=== PATIENT | female | born 1935 | race Caucasian/White ===

== ENCOUNTER 2016-10-13 16:32 | Observation (INO) | payer MEDICARE ==
[2016-10-13] MEDS ORDERED: NS 0.9% 1000 ML* 1,000 ML IV ONE (17:03)
[2016-10-13] MEDS ORDERED: Aspirin Low Dose CHEW TAB* 81 MG PO ONE (17:03)
--- NOTE | 2016-10-13 17:43 | RAD ---
HISTORY: Chest pain, syncope COMPARISONS: None VIEWS:1: Single frontal portable view of the chest at 5:30 PM FINDINGS: LINES AND TUBES: None. CARDIOMEDIASTINAL SILHOUETTE: The cardiomediastinal silhouette is normal for portable technique. PLEURA: The costophrenic angles are sharp. No pleural abnormalities are noted. LUNG PARENCHYMA: There is hyperinflation. ABDOMEN: The upper abdomen is clear. There is no subphrenic gas. BONES AND SOFT TISSUES: Degenerative changes are noted IMPRESSION: HYPERINFLATION. NO ACTIVE CARDIOPULMONARY DISEASE.
[2016-10-13 18:20] LABS: Hematocrit 45 % (35-47); Mean Corpuscular HGB Conc 33 g/dl (31-36); Mean Corpuscular Hemoglobin 28 pg (27-31); Mean Corpuscular Volume 84 fL (80-97); Mean Platelet Volume 9 um3 (7.4-10.4); Red Blood Count 5.39 10^6/ul (4.0-5.4); Red Cell Distribution Width 13 % (10.5-15); White Blood Count 7.5 10^3/ul (3.5-10.8)
[2016-10-13 18:34] LABS: Albumin 4.2 g/dL (3.2-5.2); BUN/Creatinine Ratio 13.3 (8-20); Calcium 9.8 mg/dL (8.6-10.3); EGFR African American 70.4 (>60); EGFR Non-African American 54.7 (>60); Globulin 2.1 g/dL (2-4); Magnesium 1.9 mg/dL (1.9-2.7); Potassium 4.3 mmol/L (3.5-5.0); Total Bilirubin 0.6 mg/dL (0.2-1.0); Total Protein 6.3 g/dL (6.4-8.9)
[2016-10-13 18:40] LABS: Troponin I 0.41 ng/mL (<0.04)
[2016-10-13 19:00] LABS: TSH (Thyroid Stimulating Horm) 1.92 mcIU/mL (0.34-5.60)
[2016-10-13] MEDS ORDERED: Enoxaparin(*) 80 MG/0.8 ML SYR SUBCUT ONE (19:16)
[2016-10-13] MEDS ORDERED: Atorvastatin* 80 MG TAB PO ONE (19:51)
[2016-10-13] MEDS ORDERED: Metoprolol Tartrate TAB* 25 MG PO SCH (19:52)
[2016-10-13 22:26] LABS: Troponin I 0.29 ng/mL (<0.04)
--- NOTE | 2016-10-13 22:59 | ED ---
Shamika Dutton Edward, scribed for Feli Martinez MD on 10/13/16 at 1705 . Complex/Multi-Sys Presentation - HPI Summary HPI Summary: 81 y/o female presents to ED c/o lightheadedness and near syncope today during lunch while the patient stood up. A physician at the retreat where this happened checked her pulse and noted it to be rapid and advised her to come to the ED. Pt also c/o CP 2 nights ago at the mid sternal region, rated 8/10 in severity at the time. The CP resolved spontaneously 20 minutes later. Pt also c/ o chronic fatigue and weakness for the past two months. Associated sx: palpitations described as heart racing, chronic bilateral feet turning purple when they hang. Pt has been at [facility] she [facility] been at for the previous 10 nights. Pt lives in [place], [place] and recently came to [place] 10 days ago. - History Of Current Complaint Chief Complaint: EDWeakness Time Seen by Provider: 10/13/16 17:03 Hx Obtained From: Patient Onset/Duration: Sudden Onset, Lasting Hours, Still Present Timing: Intermittent, Lasting:, Seconds Severity Currently: None Severity Initially: Severe Location: Pain At: - Mid-sternal chest Character: Dull Aggravating Factor(s): None Alleviating Factor(s): None Associated Signs And Symptoms: Positive: Weakness, Syncope - Near, Chest Pain, Palpitations, Other - Fatigue, lightheadeness, near syncope, chronic feet turning purple when they hang - Allergies/Home Medications Allergies/Adverse Reactions: Allergies Allergy/AdvReac Type Severity Reaction Status Date / Time No Known Allergies Allergy Verified 10/13/16 16:36 Home Medications: Home Medications Levothyroxine TAB* [Synthroid 75 MCG TAB*] 75 mcg PO DAILY 10/14/16 [History Confirmed 10/14/16] buPROPion TAB* [Wellbutrin TAB*] 300 mg PO DAILY 10/14/16 [History Confirmed ] PMH/Surg Hx/FS Hx/Imm Hx Previously Healthy: No Endocrine/Hematology History: Reports: Other Endocrine/Hematological Disorders - HLD, hypothyroidism Cardiovascular History: Reports: Other Cardiovascular Problems/Disorders - Hx low BP Psychiatric History: Reports: Hx Anxiety, Hx Depression - Surgical History Surgery Procedure, Year, and Place: Hysterectomy 30 years ago Infectious Disease History: Denies: Traveled Outside the [place] in Last 30 Days - Family History Known Family History: Positive: Other - [place] - mother's side. Father's side - lived into their 90's - Social History Occupation: Retired Lives: Alone Alcohol Use: None Hx Substance Use: No Substance Use Type: Reports: None Hx Tobacco Use: No Smoking Status (MU): Never Smoked Tobacco Review of Systems Positive: Fatigue Eyes: Negative ENT: Negative Positive: Palpitations, Chest Pain - 2 d ago Respiratory: Negative Gastrointestinal: Negative Genitourinary: Negative Musculoskeletal: Negative Skin: Negative Neurological: Other - Lightheadedness Positive: Weakness, Syncope - Near syncope Psychological: Normal All Other Systems Reviewed And Are Negative: Yes Physical Exam Triage Information Reviewed: Yes Vital Signs On Initial Exam: Initial Vitals Temp Pulse Resp BP Pulse Ox 97.8 F 102 20 102/86 100 10/13/16 16:36 10/13/16 16:36 10/13/16 16:36 10/13/16 16:36 10/13/16 16:36 Vital Signs Reviewed: Yes Appearance: Positive: No Pain Distress, Well-Nourished, Ill-Appearing Skin: Positive: Warm, Skin Color Reflects Adequate Perfusion Head/Face: Positive: Normal Head/Face Inspection Eyes: Positive: Conjunctiva Clear ENT: Positive: Normal ENT inspection Neck: Positive: Supple Respiratory/Lung Sounds: Positive: Clear to Auscultation, Breath Sounds Present Cardiovascular: Positive: RRR, Pulses are Symmetrical in both Upper and Lower Extremities, Other - Brisk capillary refill Abdomen Description: Positive: Nontender, Soft Bowel Sounds: Positive: Present Musculoskeletal: Positive: Strength/ROM Intact Neurological: Positive: Sensory/Motor Intact, Alert, Oriented to Person Place, Time, Facial Symmetry, Speech Normal Psychiatric: Positive: Normal Diagnostics - Vital Signs Vital Signs Temp Pulse Resp BP Pulse Ox 10/13/16 16:36 97.8 F 102 20 102/86 100 - Laboratory Lab Results: Lab Results 10/13/16 10/13/16 10/13/16 Range/Units 18:03 18:03 18:03 WBC 7.5 (3.5-10.8) 10^3/ul RBC 5.39 (4.0-5.4) 10^6/ul Hgb 15.0 (12.0-16.0) g/dl Hct 45 (35-47) % MCV 84 (80-97) fL MCH 28 (27-31) pg MCHC 33 (31-36) g/dl RDW 13 (10.5-15) % Plt Count 223 (150-450) 10^3/ul MPV 9 (7.4-10.4) um3 Neut % (Auto) 67.4 (38-83) % Lymph % (Auto) 24.7 L (25-47) % [place] % (Auto) 6.7 (1-9) % Eos % (Auto) 0.7 (0-6) % Baso % (Auto) 0.5 (0-2) % Absolute Neuts (auto) 5.0 (1.5-7.7) 10^3/ul Absolute Lymphs (auto) 1.8 (1.0-4.8) 10^3/ul Absolute Monos (auto) 0.5 (0-0.8) 10^3/ul Absolute Eos (auto) 0.1 (0-0.6) 10^3/ul Absolute Basos (auto) 0 (0-0.2) 10^3/ul Absolute Nucleated RBC 0.01 10^3/ul Nucleated RBC % 0.2 INR (Anticoag Therapy) 0.93 (0.89-1.11) APTT 30.7 (26.0-36.3) seconds D-Dimer, Quantitative < 200 (Less Than 230) ng/mL Sodium 135 (133-145) mmol/L Potassium 4.3 (3.5-5.0) mmol/L Chloride 101 (101-111) mmol/L Carbon Dioxide 23 (22-32) mmol/L Anion Gap 11 (2-11) mmol/L BUN 13 (6-24) mg/dL Creatinine 0.98 H (0.51-0.95) mg/dL Est GFR ( Amer) 70.4 (>60) Est GFR (Non-Af Amer) 54.7 (>60) BUN/Creatinine Ratio 13.3 (8-20) Glucose 76 (70-100) mg/dL Lactic Acid (0.5-2.0) mmol/L Calcium 9.8 (8.6-10.3) mg/dL Magnesium 1.9 (1.9-2.7) mg/dL Total Bilirubin 0.60 (0.2-1.0) mg/dL AST 23 (13-39) U/L ALT 11 (7-52) U/L Alkaline Phosphatase 56 (34-104) U/L Total Creatine Kinase 100 (10-223) U/L CK-MB (CK-2) 7.8 H (0.6-6.3) ng/mL Troponin I 0.41 H* (<0.04) ng/mL B-Natriuretic Peptide ( - 100) pg/mL Total Protein 6.3 L (6.4-8.9) g/dL Albumin 4.2 (3.2-5.2) g/dL Globulin 2.1 (2-4) g/dL Albumin/Globulin Ratio 2.0 (1-3) TSH 1.92 (0.34-5.60) mcIU/mL 10/13/16 10/13/16 Range/Units 18:03 18:03 WBC (3.5-10.8) 10^3/ul RBC (4.0-5.4) 10^6/ul Hgb (12.0-16.0) g/dl Hct (35-47) % MCV (80-97) fL MCH (27-31) pg MCHC (31-36) g/dl RDW (10.5-15) % Plt Count (150-450) 10^3/ul MPV (7.4-10.4) um3 Neut % (Auto) (38-83) % Lymph % (Auto) (25-47) % [place] % (Auto) (1-9) % Eos % (Auto) (0-6) % Baso % (Auto) (0-2) % Absolute Neuts (auto) (1.5-7.7) 10^3/ul Absolute Lymphs (auto) (1.0-4.8) 10^3/ul Absolute Monos (auto) (0-0.8) 10^3/ul Absolute Eos (auto) (0-0.6) 10^3/ul Absolute Basos (auto) (0-0.2) 10^3/ul Absolute Nucleated RBC 10^3/ul Nucleated RBC % INR (Anticoag Therapy) (0.89-1.11) APTT (26.0-36.3) seconds D-Dimer, Quantitative (Less Than 230) ng/mL Sodium (133-145) mmol/L Potassium (3.5-5.0) mmol/L Chloride (101-111) mmol/L Carbon Dioxide (22-32) mmol/L Anion Gap (2-11) mmol/L BUN (6-24) mg/dL Creatinine (0.51-0.95) mg/dL Est GFR ( Amer) (>60) Est GFR (Non-Af Amer) (>60) BUN/Creatinine Ratio (8-20) Glucose (70-100) mg/dL Lactic Acid 0.9 (0.5-2.0) mmol/L Calcium (8.6-10.3) mg/dL Magnesium (1.9-2.7) mg/dL Total Bilirubin (0.2-1.0) mg/dL AST (13-39) U/L ALT (7-52) U/L Alkaline Phosphatase (34-104) U/L Total Creatine Kinase (10-223) U/L CK-MB (CK-2) (0.6-6.3) ng/mL Troponin I (<0.04) ng/mL B-Natriuretic Peptide 92 ( - 100) pg/mL Total Protein (6.4-8.9) g/dL Albumin (3.2-5.2) g/dL Globulin (2-4) g/dL Albumin/Globulin Ratio (1-3) TSH (0.34-5.60) mcIU/mL Result Diagrams: 10/14/16 04:33 10/14/16 08:52 Lab Statement: Any lab studies that have been ordered have been reviewed, and results considered in the medical decision making process. - Radiology CXR Xray Interpretation: No Acute Changes - HYPERINFLATION. NO ACTIVE CARDIOPULMONARY DISEASE. ED PHYSICIAN AGREEABLE Radiology Interpretation Completed By: Radiologist - Additional Comments Diagnostic Additional Comments: EKG @ 16:52 - SR @ 97 bpm. 1st degree AV block. Normal IV, QTc, normal axis. Small Q wave in III. Poor R wave progression in V1 and V2. NSTW changes. No previous EKG for comparison Re-Evaluation - Re-Evaluation 1 Re-Evaluation Time: 19:19 Comment: Discuss plan for admission Complex Multi-Symp Course/Dx Assessment/Plan: 81 y/o female presents to ED c/o lightheadedness and near syncope today during lunch while the patient stood up. Pt also c/o CP 2 nights ago at the mid sternal region, rated 8/10 in severity at the time. The CP resolved spontaneously 20 minutes later. Pt also c/o chronic fatigue and weakness for the past two months. Associated sx: palpitations described as heart racing, chronic bilateral feet turning purple when they hang. Pt has been at [facility] where she had been at for the previous 10 nights. Pt lives in [place], [place] and recently came to [place] 10 days ago. CXR SHOWS HYPERINFLATION. NO ACTIVE CARDIOPULMONARY DISEASE. Discussed with Nagi Hall @ 19:11 who recommended we consult Cardiology. Discussed case with Dr. Bonilla Brady @ 19:15 who recommended admission and instructed we give Lovenox 1 mg/kg. EKG @ 16:52 - SR @ 97 bpm. 1st degree AV block. Normal IV, QTc, normal axis. Small Q wave in III. Poor R wave progression in V1 and V2. NSTW changes. No previous EKG for comparison. Discussed case with Dr. Jackson who accepted the pt for admission @ 19:17. - Diagnoses Provider Diagnoses: Near syncope, Elevated troponin, Chest pain - Physician Notifications Discussed Care Of Patient With: Bonilla Brady Time Discussed With Above Provider: 19:15 Instructed by Provider To: Admit As Inpatient - and give Lovenox Discharge - Discharge Plan Condition: Improved Disposition: ADMITTED TO [facility] The documentation as recorded by the Shamika andrews Edward accurately reflects the service I personally performed and the decisions made by , Feli Martinez MD.
[2016-10-14 02:37] LABS: Troponin I 0.17 ng/mL (<0.04)
[2016-10-14 05:06] LABS: Hematocrit 40 % (35-47); Hemoglobin 13.4 g/dl (12.0-16.0); Mean Corpuscular HGB Conc 33 g/dl (31-36); Mean Corpuscular Hemoglobin 28 pg (27-31); Mean Corpuscular Volume 84 fL (80-97); Mean Platelet Volume 10 um3 (7.4-10.4); Red Cell Distribution Width 13 % (10.5-15); White Blood Count 5.8 10^3/ul (3.5-10.8)
[2016-10-14 05:15] LABS: BUN/Creatinine Ratio 13.6 (8-20); Blood Urea Nitrogen 14 mg/dL (6-24); CO2 Carbon Dioxide 23 mmol/L (22-32); Calcium 8.9 mg/dL (8.6-10.3); Chloride 106 mmol/L (101-111); Cholesterol 164 mg/dL; EGFR African American 66.5 (>60); EGFR Non-African American 51.7 (>60); Glucose 95 mg/dL (70-100); HDL Cholesterol 34.8 mg/dL; Sodium 137 mmol/L (133-145); Triglycerides 551 mg/dL
[2016-10-14 05:34] LABS: Anion Gap 8 mmol/L (2-11)
[2016-10-14] MEDS ORDERED: Levothyroxine TAB* 75 MCG TAB PO SCH (06:00)
--- NOTE | 2016-10-14 07:02 | HP ---
CC: Dr. Brady * HISTORY AND PHYSICAL: DATE OF ADMISSION: 10/13/16 PRIMARY CARE PROVIDER: None. ATTENDING PHYSICIAN WHILE IN THE HOSPITAL: Juancarlos Jackson MD * (report dictated by Nagi Hall NP) CHIEF COMPLAINT: 1. Chest pain. 2. Near syncope. HISTORY OF PRESENT ILLNESS: Mrs. Mondragon is a 81-year-old female patient. She has a history of hyperlipidemia, hypothyroidism, anxiety, depression, and osteoporosis. She comes into the ER today stating that she recently comes to the [facility] from [place] for a wellness retreat. She was at that retreat 2 days ago and developed some substernal chest pain while she says she was laying in bed, lasted about 20 minutes and then shortly got better. She does state that since then she has been pretty fatigued, pretty weak, she gets pretty short of breath with minimal exertion; but no chest discomfort or any more pain per the patient. She does state that leading up to this she has been having a significant amount of weakness, fatigue, fatiguing easily, getting pretty winded , and just not having the same exercise capacity that she had prior in prior months. She was at the retreat today. She was going to get up from eating when she had an episode where she almost fainted, she was near syncopal. There was a medical provider there who checked her pulse and it was noted to be 125 so they referred her to the hospital. There has been no reports of calf pain, no short of breath, no pain on inspiration, no fevers or chills, no congestion, no nausea, vomiting, or diarrhea. She again was concerned because the chest pressure came in, and was evaluated and it was noted that she had a troponin of 0.41 and because of this the hospitalist service was asked to evaluate for admission. PAST MEDICAL HISTORY: Significant for: 1. Hyperlipidemia. 2. Hypothyroidism. 3. Anxiety. 4. Depression. 5. Osteoporosis. PAST SURGICAL HISTORY: 1. She has had a hysterectomy. 2. Knee surgery. HOME MEDICATIONS: According to her recall, she is trying to get a list which include: 1. Repatha 140 mg every 2 weeks subcu. 2. Wellbutrin 300 mg a day. 3. Synthroid 75 mcg daily. 4. Prolia 1 injection yearly. 5. Xanax 1 tablet as needed daily for anxiety. ALLERGIES TO MEDICATIONS: No known drug allergies. FAMILY HISTORY: Mother had a history of cancer, father in his 90s of old age according to the patient. SOCIAL HISTORY: She does not smoke. She drinks wine occasionally. Surrogate decision makers are her sons. REVIEW OF SYSTEMS: There is no documented fever. She denied having any significant weight change. There was no double vision. She denies having any ear discharge. She denies having any rhinorrhea, no sore throat, no thyroid enlargement. There is chest pain per my HPI. There was a near syncopal episode. There is no shortness of breath. There is no dyspnea on exertion. There is no orthopnea or nocturnal dyspnea. There is no abdominal pain. There was no nausea, no vomiting. There is no dysuria. No frequency, no seizure. Again there was near syncope; but no loss of consciousness, no pruritus, and no skin ulcerations. Review of 14 systems completed and all others negative. PHYSICAL EXAMINATION GENERAL: At this time Mrs. Mondragon is a 81-year-old female patient. She is sitting in the ER stretcher. She does not appear to be in any acute distress. VITAL SIGNS: Reveals blood pressure 116/71, pulse of 92, respirations 18, O2 sat 100%, and temperature 99.0. HEENT: Head is atraumatic and normocephalic. Eyes; EOMs are intact. Sclerae anicteric and not pale. NECK: Supple. Throat; oral mucosa appears to be moist, no oropharyngeal erythema. LUNGS: Clear to auscultation bilaterally. No wheezes, rales, or rhonchi. HEART: Sounds S1 and S2. Regular, rate, and rhythm. No murmurs, rubs, or gallops. ABDOMEN: Soft, it was flat and nontender. Bowel sounds present. EXTREMITIES: Pulses 2+ throughout. Able to move all 4 extremities with 5/5 strength. NEUROLOGIC: The patient is awake, is alert. She is oriented x3. Tongue midline, billing coordinator are equal, no gross focal deficits. SKIN: Grossly intact. LABORATORY DATA: Reveal WBC of 7.5, RBC of 5.39, hemoglobin 15.0, hematocrit of 45, platelet count 223. The INR was 0.93. PTT of 30.9. D-dimer less than 200. Sodium 135, potassium of 4.3, chloride of 101, her bicarb was 23, BUN 13, creatinine 0.98, glucose 76, lactic 0.9, calcium 9.8, mag 1.9. Total bili was 0.6, AST 23, ALT 11, alk phos 56, troponin was 0.41, BMP of 92. Albumin 4.2, TSH normal at 1.92. There was a chest x-ray obtained today which revealed hyperinflation, no active cardiopulmonary disease. There was an EKG as well that showed a normal sinus rhythm, rate of 97. No ST- elevations or T-wave inversions were noted. Old medical records were not available. ASSESSMENT AND PLAN: Mrs. Mondragon is a 81-year-old female patient. She presented today with complaints of chest pain 2 days ago, now easily fatigued and dyspnea on exertion. She has been having easy fatigue for the last month off and on. It was now noted that her troponin was mildly elevated. She will be admitted under inpatient status for: 1. Chest pain with elevated troponin, concern for N-STEMI. Again it is hard to say, her symptoms are atypical. She did have this tachycardia as well. This could just be demand ischemia from an arrhythmia that we just have not seen yet. I did touch base with Dr. Brady, he felt at this point to hold off on the beta-malika. Obviously if her troponins come up or if she becomes symptomatic I would give that to her. I am going to give her Lovenox, aspirin, and start a statin. He wants to hold the beta-malika to see if there are any arrhythmias possibly. The plan is also to stress her tomorrow and we do not want her to have a beta-malika on board if we are going to do stressing. So I did order a stress test tomorrow per his recommendations. Obviously, if the troponins go up then I am going to cancel that stress test. She will be n.p.o. after midnight. We will trend these troponins. She is asymptomatic currently and we will continue to follow her closely. 2. Hyperlipidemia. I did add a statin therapy and I will check lipid panel. 3. Hypothyroidism. Continue Synthroid. 4. Anxiety and depression. Continue her meds as prescribed. 5. Osteoporosis. Follow with the primary. 6. DVT prophylaxis. She is getting full-dose Lovenox. 7. Code status. Full code. 8. Fluids, electrolytes, and nutrition. She can have a healthy diet. TIME SPENT: On the admission approximately 60 minutes, greater than half the time spent [id number] with the patient obtaining my history and physical. The other half the time spent going over the plan of care with the patient and then implementing my plan of care. I discussed the plan of care with my attending Dr. Jackson who is in agreement. NAGI HALL NP [id number]/CPS #: [id number] JUVENTINO
[2016-10-14] MEDS ORDERED: Enoxaparin(*) 60 MG/0.6 ML SYR SUBCUT SCH (08:00)
[2016-10-14] MEDS ORDERED: BuPROPion XL* 300 MG TAB.XL PO SCH (09:00)
[2016-10-14] MEDS ORDERED: Aspirin Low Dose CHEW TAB* 81 MG PO SCH (09:00)
--- NOTE | 2016-10-14 10:53 | ECHO ---
Patient: GODWIN REYES [facility] Rec#: [id number] : 1935 Date: 10/14/2016 Age: 81y Height: 167.64 cm / 66.0 in Weight: 58.97 kg / 130.0 lbs Sex: F BSA: 1.67 Room#: 447 Admit Date#: 10/13/2016 Type: Inpatient Referring: Nagi Hall NP Reading: Toan Nieto MD Manager Medical Affairs: Isha Carrizales [facility] Transthoracic Echocardiogram Indication: CP/NSTEMI BP: 148/52 HR: 77 Rhythm: NSR Findings History: HLD,hypothyroid,anxiety-depression,s/p bilateral breast implants. Technical Comments: The study quality is good. Completed at 0836. Left Ventricle: The left ventricular chamber size is decreased. Septal wall hypertrophy is observed. Global left ventricular wall motion and contractility are within normal limits. There is normal left ventricular systolic function. The estimated ejection fraction is 55-60%. Abnormal left ventricular diastolic function is observed. Left Atrium: The left atrial chamber size is normal. Right Ventricle: The right ventricular cavity size is normal. The right ventricular global systolic function is normal. Right Atrium: The right atrial cavity size is normal. Aortic Valve: The aortic valve is trileaflet. The aortic valve leaflets are mildly thickened. There is no evidence of aortic regurgitation. There is no evidence of aortic stenosis. Mitral Valve: The mitral valve leaflets appear normal. There is mild mitral regurgitation. The mitral regurgitant jet is centrally directed. There is no evidence of mitral stenosis. Tricuspid Valve: The tricuspid valve leaflets are normal. There is mild to moderate tricuspid regurgitation. The tricuspid regurgitant jet is centrally directed. No pulmonary hypertension is noted. There is no tricuspid stenosis. Pulmonic Valve: The pulmonic valve appears normal. There is no evidence of pulmonic regurgitation. There is no pulmonic stenosis. Pericardium: The pericardium appears normal. Aorta: The ascending aorta is not well visualized. There is no dilatation of the aortic arch. There is no dilation of the aortic root. Pulmonary Artery: The main pulmonary artery appears normal. Venous: The inferior vena cava appears normal in size. There is a greater than 50% respiratory change in the inferior vena cava dimension. Conclusions Global left ventricular wall motion and contractility are within normal limits. There is normal left ventricular systolic function. The estimated ejection fraction is 55-60%. There is no evidence of aortic stenosis. There is mild mitral regurgitation. There is mild to moderate tricuspid regurgitation. No pulmonary hypertension is noted. The pericardium appears normal. Measurements Name Value Normal Range RVIDd (AP) 2D 2.7 cm (0.9 - 2.6) RVDdMajor (2D) 2.9 cm (2.2 - 4.4) RAd ISD 4CH 4.4 cm (3.4 - 4.9) RA (A4C)W 3.3 cm (2.9 - 4.6) IVSd (2D) 1.3 cm (0.6 - 1) LVPWd (2D) 0.9 cm (0.6 - 1) LVIDd (2D) 2.9 cm (3.6 - 5.4) LVIDs (2D) 2.1 cm - LV FS (2D) 27 % (25 - 45) Aortic Annulus 1.3 cm (1.4 - 2.6) Ao root diameter (2D) 3 cm (2.1 - 3.5) Aortic arch 2.3 cm (1.8 - 3.4) Descending Ao 0.3 cm - LA dimension (AP) 2D 3.1 cm (2.3 - 3.8) LAd ISD 4CH 4.9 cm (2.9 - 5.3) LA ISD 4CH W 3.4 cm (2.5 - 4.5) Name Value Normal Range LA ESV SP 4CH (A/L) 41 ml - LA ESV SP 2CH (A/L) 42 ml - LA ESV BP (A/L) 45 ml - LA ESV BP (A/L) index 27.02 ml/m2 - LA ESV SP 4CH (MOD) 38 ml - LA ESV SP 2CH (MOD) 38 ml - Name Value Normal Range MV E-wave Vmax 0.7 m/sec - MV deceleration time 208 msec - MV A-wave Vmax 1.1 m/sec - MV E:A ratio 0.61 ratio - LV septal e' Vmax 0.08 m/sec - LV lateral e' Vmax 0.08 m/sec - LV E:e' septal ratio 7.5 ratio - LV E:e' lateral ratio 7.5 ratio - Name Value Normal Range AV Vmax 2 m/sec - AV VTI 43.9 cm - AV peak gradient 16.33 mmHg - AV mean gradient 8.94 mmHg - LVOT Vmax 1.7 m/sec - LVOT VTI 37 cm - LVOT peak gradient 11.54 mmHg - LVOT mean gradient 6.76 mmHg - Name Value Normal Range TR Vmax 2.5 m/sec - TR peak gradient 24 mmHg - RAP 3 mmHg - RVSP 27 mmHg - IVC diameter 2 cm - Name Value Normal Range PV Vmax 0.8 m/sec - PV peak gradient 2.45 mmHg -
[2016-10-14] MEDS ORDERED: Regadenoson* 0.4 MG/5 ML SYRINGE ONE (11:03)
--- NOTE | 2016-10-14 14:28 | RAD ---
Edited for charges. INDICATION: Chest pain. COMPARISON: There are no prior studies available for comparison. Technique: A single day myocardial perfusion stress study was performed. Initially the resting study was performed. The patient was given an intravenous injection of 10.3 mCi of technetium 99m tetrofosmin and and the heart was imaged in multiple projections. The patient returned later in the day and under the direction of Dr. Szymanski, the patient was given intervenous injection of Lexiscan. Subsequently the patient was given intravenous injection of 25.4 mCi of technetium 99m tetrofosmin and the heart was imaged in multiple projections. Images were reconstructed in the axial, sagittal and coronal planes and in a 3- D format. FINDINGS: There appears to be normal wall motion and myocardial thickening. The left ventricular ejection fraction was calculated to be 88%. Review of the images demonstrates no evidence for infarct or ischemia. IMPRESSION: NO EVIDENCE FOR INFARCT OR ISCHEMIA. ASSESSMENT: Low risk. Based on imaging criteria from ACC/AHA 2002 Guideline Update for the Management of Patients With Chronic Stable Angina Table 23. Noninvasive Risk Stratification. MTDD
[2016-10-14] MEDS ORDERED: Metoprolol Succinate XL TAB* 25 MG PO SCH (16:00)
[2016-10-14] MEDS ORDERED: NS 0.9% 500 ML BAG* 500 ML IV ONE (16:02)
--- NOTE | 2016-10-14 16:33 | DCNOTE ---
Subjective Date of Service: 10/14/16 Interval History: No chest pains or palpitations since admission. No new c/o. Anxious to go home. Objective Active Medications: Aspirin (Aspirin Low Dose Tab*) 81 mg PO DAILY [facility] Last Admin: 10/14/16 08:59 Dose: 81 mg Bupropion HCl (Bupropion Xl*) 300 mg PO DAILY [facility] PRN Reason: Protocol Last Admin: 10/14/16 08:59 Dose: 300 mg Enoxaparin Sodium (Lovenox(*)) 60 mg SUBCUT Q12H [facility] Last Admin: 10/14/16 09:00 Dose: 60 mg Sodium Chloride (Ns 0.9% 500 Ml Bag*) 500 mls @ 1,000 mls/hr IV ONCE ONE Stop: 10/14/16 16:31 Last Admin: 10/14/16 16:20 Dose: 1,000 mls/hr Levothyroxine Sodium (Synthroid Tab*) 75 mcg PO DAILY@0600 [facility] Last Admin: 10/14/16 05:37 Dose: 75 mcg Metoprolol Succinate (Toprol Xl Tab*) 25 mg PO DAILY [facility] Last Admin: 10/14/16 16:20 Dose: 25 mg Vital Signs 10/13/16 10/13/16 10/13/16 19:50 20:53 21:30 Temperature 98.1 F 98.1 F Pulse Rate 92 92 92 Respiratory 18 16 16 Rate Blood Pressure 116/71 142/55 142/55 (mmHg) O2 Sat by Pulse 100 100 100 Oximetry 10/14/16 10/14/16 10/14/16 00:36 04:12 07:45 Temperature 97.5 F 97.8 F 97.8 F Pulse Rate 69 73 79 Respiratory 16 16 18 Rate Blood Pressure 121/54 148/52 116/54 (mmHg) O2 Sat by Pulse 100 100 98 Oximetry 10/14/16 10/14/16 10/14/16 08:00 09:26 11:21 Temperature 97.7 F Pulse Rate 66 Respiratory 16 18 Rate Blood Pressure 138/68 (mmHg) O2 Sat by Pulse 98 100 Oximetry Oxygen Devices in Use Now: None Appearance: Alert, partly up in bed. In good spirits. Looks comfortable. Ears/Nose/Mouth/Throat: Clear Oropharnyx, Mucous Membranes Moist Neck: NL Appearance and Movements; NL JVP, No Thyroid Enlargement, Masses Respiratory: Symmetrical Chest Expansion and Respiratory Effort, Clear to Auscultation, Clear to Percussion Extremities: No Edema, No Clubbing, Cyanosis, - Skin: No Rash or Ulcers, No Nodules or Sclerosis, - Neurological: Alert and Oriented x 3, NL Sensation Result Diagrams: 10/14/16 04:33 10/14/16 08:52 Additional Lab and Data: Lab Results 10/13/16 10/13/16 10/13/16 Range/Units 18:03 18:03 18:03 WBC 7.5 (3.5-10.8) 10^3/ul RBC 5.39 (4.0-5.4) 10^6/ul Hgb 15.0 (12.0-16.0) g/dl Hct 45 (35-47) % MCV 84 (80-97) fL MCH 28 (27-31) pg MCHC 33 (31-36) g/dl RDW 13 (10.5-15) % Plt Count 223 (150-450) 10^3/ul MPV 9 (7.4-10.4) um3 Neut % (Auto) 67.4 (38-83) % Lymph % (Auto) 24.7 L (25-47) % [place] % (Auto) 6.7 (1-9) % Eos % (Auto) 0.7 (0-6) % Baso % (Auto) 0.5 (0-2) % Absolute Neuts (auto) 5.0 (1.5-7.7) 10^3/ul Absolute Lymphs (auto) 1.8 (1.0-4.8) 10^3/ul Absolute Monos (auto) 0.5 (0-0.8) 10^3/ul Absolute Eos (auto) 0.1 (0-0.6) 10^3/ul Absolute Basos (auto) 0 (0-0.2) 10^3/ul Absolute Nucleated RBC 0.01 10^3/ul Nucleated RBC % 0.2 INR (Anticoag Therapy) 0.93 (0.89-1.11) APTT 30.7 (26.0-36.3) seconds D-Dimer, Quantitative < 200 (Less Than 230) ng/mL Sodium 135 (133-145) mmol/L Potassium 4.3 (3.5-5.0) mmol/L Chloride 101 (101-111) mmol/L Carbon Dioxide 23 (22-32) mmol/L Anion Gap 11 (2-11) mmol/L BUN 13 (6-24) mg/dL Creatinine 0.98 H (0.51-0.95) mg/dL Est GFR ( Amer) 70.4 (>60) Est GFR (Non-Af Amer) 54.7 (>60) BUN/Creatinine Ratio 13.3 (8-20) Glucose 76 (70-100) mg/dL Lactic Acid (0.5-2.0) mmol/L Calcium 9.8 (8.6-10.3) mg/dL Magnesium 1.9 (1.9-2.7) mg/dL Total Bilirubin 0.60 (0.2-1.0) mg/dL AST 23 (13-39) U/L ALT 11 (7-52) U/L Alkaline Phosphatase 56 (34-104) U/L Total Creatine Kinase 100 (10-223) U/L CK-MB (CK-2) 7.8 H (0.6-6.3) ng/mL Troponin I 0.41 H* (<0.04) ng/mL B-Natriuretic Peptide ( - 100) pg/mL Total Protein 6.3 L (6.4-8.9) g/dL Albumin 4.2 (3.2-5.2) g/dL Globulin 2.1 (2-4) g/dL Albumin/Globulin Ratio 2.0 (1-3) TSH 1.92 (0.34-5.60) mcIU/mL 10/13/16 10/13/16 Range/Units 18:03 18:03 WBC (3.5-10.8) 10^3/ul RBC (4.0-5.4) 10^6/ul Hgb (12.0-16.0) g/dl Hct (35-47) % MCV (80-97) fL MCH (27-31) pg MCHC (31-36) g/dl RDW (10.5-15) % Plt Count (150-450) 10^3/ul MPV (7.4-10.4) um3 Neut % (Auto) (38-83) % Lymph % (Auto) (25-47) % [place] % (Auto) (1-9) % Eos % (Auto) (0-6) % Baso % (Auto) (0-2) % Absolute Neuts (auto) (1.5-7.7) 10^3/ul Absolute Lymphs (auto) (1.0-4.8) 10^3/ul Absolute Monos (auto) (0-0.8) 10^3/ul Absolute Eos (auto) (0-0.6) 10^3/ul Absolute Basos (auto) (0-0.2) 10^3/ul Absolute Nucleated RBC 10^3/ul Nucleated RBC % INR (Anticoag Therapy) (0.89-1.11) APTT (26.0-36.3) seconds D-Dimer, Quantitative (Less Than 230) ng/mL Sodium (133-145) mmol/L Potassium (3.5-5.0) mmol/L Chloride (101-111) mmol/L Carbon Dioxide (22-32) mmol/L Anion Gap (2-11) mmol/L BUN (6-24) mg/dL Creatinine (0.51-0.95) mg/dL Est GFR ( Amer) (>60) Est GFR (Non-Af Amer) (>60) BUN/Creatinine Ratio (8-20) Glucose (70-100) mg/dL Lactic Acid 0.9 (0.5-2.0) mmol/L Calcium (8.6-10.3) mg/dL Magnesium (1.9-2.7) mg/dL Total Bilirubin (0.2-1.0) mg/dL AST (13-39) U/L ALT (7-52) U/L Alkaline Phosphatase (34-104) U/L Total Creatine Kinase (10-223) U/L CK-MB (CK-2) (0.6-6.3) ng/mL Troponin I (<0.04) ng/mL B-Natriuretic Peptide 92 ( - 100) pg/mL Total Protein (6.4-8.9) g/dL Albumin (3.2-5.2) g/dL Globulin (2-4) g/dL Albumin/Globulin Ratio (1-3) TSH (0.34-5.60) mcIU/mL Assess/Plan/Problems-Billing Assessment: - Patient Problems (1) Chest pain Current Visit: Yes Status: Acute Code(s): R07.9 - CHEST PAIN, UNSPECIFIED SNOMED Code(s): 80097219 Comment: Discussed with Dr. Nieto. Neg echo, neg stress test, neg D-dimer. Possible arrhytmia. He recommends metoprolol XL 25 mg daily and ASA 81 mg daily. I confirmed with her [facility] in [place] that she takes that at home. She states she has some with her. (2) Hypothyroid Current Visit: Yes Status: Acute Code(s): E03.9 - HYPOTHYROIDISM, UNSPECIFIED SNOMED Code(s): 76103306 Comment: TSH wnl 10/13/16. Continue home dose levothyroxine. Status and Disposition: Discharge now. Patient will return to [place] in about a week and fup with her PCP there.
[2016-10-14 17:45] VITALS: BP 146/68
--- NOTE | 2016-10-15 13:26 | CONS ---
CARDIOLOGY CONSULTATION: DATE OF CONSULT: 10/14/16 INDICATION FOR CONSULTATION: Chest pain. HISTORY OF PRESENT ILLNESS: Patient is a 81-year-old female who is from [place] who is visiting the area. Patient states that she is here for a retreat during which time, she has been eating healthy foods and food she calls as low ketosis foods. Patient states that 2 days ago, she was at a friend 's house and she started noticing some chest pain, she described the pain as right in the center of her chest, it did not radiate anywhere. It felt as though a hand was on her chest, her discomfort r ated at 4/10. It did not radiate to her back or shoulders. She did not have any nausea or vomiting associated and she did not have any diaphoresis. She did feel like her heart was skipping beats whe n she had the symptom. She says the symptoms lasted for about 20 minutes. She did not think it was a stroke. So decided not to seek medical care. Patient had no further symptoms for the next 2 day s. However, on the day of admission, patient states that she was at her house, again her diet was s ignificantly different than her normal diet. She went to stand up and felt dizzy and collapsed to th e floor. She denied any palpitations at the time, she denied any chest pain, she denied any nausea, vomiting. She was brought to the emergency room where her workup was essentially unremarkable. Tigre reyes ruled out for myocardial infarction. Patient did have an echocardiogram which demonstrated no rmal LV size and systolic function. No significant valvular abnormalities. Patient did have a chem ica nuclear stress test which showed no perfusion abnormalities and normal LV function. In speakin g with the patient today, she has no symptoms. She has not had any further episodes of palpitations . She had no further episodes of chest pain. PAST MEDICAL HISTORY: Significant for hyperlipidemia, hypothyroidism, anxiety. PAST SURGICAL HISTORY: Includes a hysterectomy and knee surgery. OUTPATIENT MEDICATIONS: 1. Repatha 140 mg subcu every 2 weeks. 2. Wellbutrin 300 mg a day. 3. Synthroid 75 mcg a day. 4. Xanax as needed. ALLERGIES: No known drug allergies. FAMILY HISTORY: Her mother of cancer. Father in his 80s of natural causes. SOCIAL HISTORY: She is retired. She lives in [place]. She denies tobacco or alcohol use. PHYSICAL EXAM: Height is 5 feet 3 inches, weight is 120 pounds. Heart rate is 80, blood pressure 1 12/72. Respiratory rate is 18, oxygen saturation 98% on room air. Sclerae anicteric. Oropharynx is pink without erythema. Carotids are 2+ without bruits. JVD is normal. Thyroid normal. Cardiac E xam: S1 and S2 without any murmurs, rubs or gallops. Lungs: Clear to auscultation bilaterally. N o dullness to percussion. Abdomen: Soft, nontender, nondistended, with normoactive bowel sounds. Extremities shows no edema. She has 2+ pulses throughout. The patient is awake and alert and orien angelina. She moves all 4 extremities equally. DIAGNOSTIC STUDIES/LAB DATA: CBC within normal limits. Chemistries within normal limits. Initial troponin levels 0.41, second troponin of 0.29, third troponin is 0.17. Again, patient had an echoca rdiogram which showed normal LV size and systolic function. Her EKG demonstrated a normal sinus rhythm, with nonspecific ST-T wave abnormalities. IMPRESSION: This is a 81-year-old female who was brought to the emergency room because of a syncopa l episode. I think her syncopal episode was clearly due to orthostasis. Again, patient has been of f of her usual diet while she is up visiting [place]. She is on a "health cleanse." Patient did n ot have any signs or symptoms of an arrhythmia prior to her episode of syncope. Patient did have an episode of chest pain 2 days ago of unclear significance. Again, patient did hav e some palpitations associated with that episode of chest pain which could be due to arrhythmia. Tigre amy had mildly elevated troponin levels. Her D-dimer level was normal. Patient's cardiac workup was unremarkable with a normal stress test and a normal echocardiogram. At this point, I am not exa ctly clear as to what the cause of her symptoms were. Again, it could be due to arrhythmia. RECOMME NDATIONS: For now my recommendation is that the patient be discharged from the hospital. I recomme nd that the patient be on an aspirin a day, low dose beta- blockers. Patient will follow up with gifty r primary care physician in [place] when she returns in 2 days. No further inpatient work up is nec essary at this time. This case was discussed with Dr. Eason. [id number]/CPS #: [id number]
== END 2016-10-14 18:00 | disposition home or self-care (01) ==
LOC: ED 16:32 → INTOOBSV 19:49 → MEDTELE 19:49
PROVIDERS: ADMIT Hospitalist; ATTEND Internal Medicine
DX: R07.89 Other chest pain (principal); R00.2 Palpitations; R55 Syncope and collapse; E03.9 Hypothyroidism, unspecified; R93.1 Abnormal findings on diagnostic imaging of heart and coronary circulation; I95.1 Orthostatic hypotension; Z79.899 Other long term (current) drug therapy; I44.0 Atrioventricular block, first degree
CPT/HCPCS: 36415; 71010; 78452; 80048; 80053; 80061; 82550; 82553; 83036; 83605; 83735; 83880; 84443; 84484; 85025; 85379; 85610; 85730; 93005; 93017; 93306; 94760; 99284; A9270-GY; A9502; G0378; J1650; J2785